=== PATIENT | male | born 1960 ===

== ENCOUNTER 2019-04-01 02:07 | Inpatient (IN) ==
[2019-04-01] MEDS ORDERED: ICU PROTOCOL FOR HYPERGLYCEMIA PRN (05:43)
[2019-04-01] MEDS ORDERED: HydrALAZINE HCL 20 MG/ML VIAL IV STA (06:17)
--- NOTE | 2019-04-01 06:28 | History & Physical Report ---
Date of Service April 01, 2019 Assessment & Plan (1) Hypertensive encephalopathy: Hypertensive encephalopathy/hypertensive urgency- Patient received IV labetalol, IV hydralazine, IV Dilaudid and oral Valium at [facility]'s ED. Transfer report was the patient was to be started on nicardipine drip, however, upon arrival, it is learned the patient was never begun on the drip. Resume his hydralazine 100 mg p.o. 3 times daily. Placed on hydralazine 10 mg IV dose now, and then every 4 hours as needed systolic blood pressure above 160. Order complete echocardiogram. Order initial work-up: CBC with differential, chemistry profile, magnesium level, phosphorus, troponin, EKG, chest x-ray. Consult clothespin drier operator. Present on Admission?: Yes (2) Hypertensive urgency: See above. Present on Admission?: Yes (3) Chronic kidney disease: Creatinine of 1.75 reportedly is near his baseline of 1.5-1.7. Present on Admission?: Yes (4) Cocaine abuse: Reportedly urine drug screen from 2 days ago was positive for cocaine. Repeat was requested prior to transfer, however, may need to be ordered at this facility. Present on Admission?: Yes (5) Seizure disorder: Reports history of seizure disorder, but on no medications at this time. Present on Admission?: Yes (6) Blurred vision, bilateral: Patient reports that his bilateral blurred vision has almost completely normalized, with just some residual blur in his right eye. Present on Admission?: Yes (7) Admitted to intensive care unit: Admitted as above. Present on Admission?: Yes History of Present Illness Chief Complaint: The patient presents as a transfer from [facility]'s Emergency Department to [facility] to further address diagnosis and treatment of hypertensive encephalopathy and urgency. Primary Care Provider: NO PCP The patient is a 58-year-old male with past medical history including hypertension, hypertensive urgency, positive recent UDS for cocaine, chronic kidney disease stage III and acute renal failure who presented to [facility] emergency department on the evening of 03/31/2019 due to confusion, blurred vision and elevated blood pressure. At that time he was given 10mg of IV hydralazine, 20 mg of IV labetalol, 1mg of IV Dilaudid and oral Valium, with best blood pressure obtainable there to 215/135. Allergies Allergy/AdvReac Type Severity Reaction Status Date / Time No Known Allergies Allergy Unverified 04/01/19 06:11 Home Medications Home Medications Medication Instructions Recorded Confirmed Type hydralazine 100 mg PO TID 04/01/19 04/01/19 History Past Med/Surg History Medical History Hypertension Seizure Social History Preferred Language: Guamanian Communication Ability: Effective Intervention Specialist Required: No Beliefs That Will Affect Care: None marital status: Single Current Living Situation: Family Feels Safe at Home: Yes Safety Concerns: Feels Safe At This Time Smoking Status: Current every day smoker Tobacco Type: cigarettes ; Cigarettes Per Day: 20 ; Do You Dip or Chew Tobacco: No ; Second Hand Exposure: No ; Hx Alcohol Use: No Review of Systems Review of Systems: The patient denies chest pain, palpitations, shortness of breath, dyspnea on exertion, cough, lower extremity swelling, sore throat, fevers, chills, sweats, weight change, nausea, vomiting, diarrhea , constipation, abdominal pain, pelvic pain, blood in urine or stool, dysuria, urinary frequency or urgency, loss of consciousness, rash, abnormal bruising or bleeding, imbalance, focal weakness, numbness or tingling in arms or legs, generalized a rthralgias or myalgias, back or neck pain, or night sweats. The review of systems is otherwise negative other than for that already noted above, and at least 10 systems have been reviewed. Physical Exam Physical Exam: The patient is awake, alert and oriented 3, lying in bed and in no acute distress. HEENT--PERRL, EOMI, mucous membranes and oropharynx very dry. Neck--supple. No JVD. No bruits. Thyroid normal, trachea midline, no adenopathy. Heart--normal S1 and S2. No murmurs, rubs or gallops. Lungs--clear bilaterally, no respiratory distress, no accessory muscle use. Abdomen--normal bowel sounds and soft. Nontender. Nondistended, no hernias or masses, no organomegaly. Extremities--no cyanosis or clubbing. No edema. Dermatologic--skin on face mildly erythematous and dry. Neurologic--cranial nerves II through XII grossly intact. Rheumatologic--normal range of motion. Psychiatric--normal affect. Results & Data Vital Signs (Past 12 Hours) Vital Signs Temp Pulse Resp BP Pulse Ox 04/01/19 05:46 97.7 F 57 L 18 208/110 H 96 Code Status & VTE Plan Code Status Full code VTE Prophylaxis Plan VTE Prophylaxis will be ordered: Yes Critical Care Time Critical Care Time: Yes Total Critical Care Time: 45 total critical care time was 45 minutes PG Care Time/CCT Total # of Minutes Spent Total Time Spent with Patient: Total time spent is greater than 50% in coordination of care (as documented) at patient's floor/unit and/or counseling patient: Critical Care Time: Yes Total Critical Care Time: 45
[2019-04-01] MEDS ORDERED: FAMOTIDINE 20 MG in SYRINGE 3 ML IV SCH (06:30)
--- NOTE | 2019-04-01 06:46 | Critical Care Consultation ---
Date of Consultation April 01, 2019 Assessment & Plan (1) Admitted to intensive care unit: Reason Critically Ill: 58-year-old male with hypertensive urgency requiring aggressive antihypertensive medications. NEURO/PSYCH - * CAM ICU: NEGATIVE * History of migraines. * Would avoid narcotics in the patient for potential for abuse given his history of prior narcotic dependence and frequent visits to the emergency department. * CT of head yesterday found to be unremarkable. * Patient had tested positive for cocaine 2 days ago at the emergency department. * Blurry vision and paresthesias: * Reportedly resolved after correction of blood pressure. * Presumed hypertensive related. * Suicidal thoughts: * Suicide precautions in place. * Appreciate psychiatric consultation. CARDIAC/VASCULAR - * Hypertensive emergency: * Initially with blood pressures in the 230s. Did respond to intravenous me dications appropriately. * Noncompliant with home medications. * We will treat with IV hydralazine. * Restart all home antihypertensives. * Completely asymptomatic at this time. * Will check labs for evaluation of end-organ damage. * Consider Cardene if needed. * Avoid beta-blockers with recent positive UDS for cocaine. * Will repeat UDS. * Monitor on telemetry. RESPIRATORY - * No history of pulmonary disease. * Monitor continuous pulse oximetry. * Supplemental O2 as needed. GI/NUTRITION - * Heart healthy diet * Prophylaxis: Famotidine RENAL/LYTES - * Will check labs and chemistry panel. * Replace as needed. * IVF: Hold on IV fluids in the setting of hypertensive emergency. - * No concerns at this time. ENDO - * No history of diabetes or thyroid disease. * BSGs per unit protocol. ISS --> gtt per unit policy. HEME - * Will check H&H. * Transfuse as needed. ID - * No concerns of infectious etiologies at this point. LINES/IV ACCESS - * PIVs x1 DVT PROPHYLAXIS - * Heparin * SCDs Thank you for allowing us to participate in the care of this patient. Please refer to my attending physician's documentation for any further recommendations. (2) Hypertensive urgency: (3) Chronic kidney disease: (4) Blurred vision, bilateral: (5) Suicidal thoughts: Supervising Physician Co-Signing Physician Notes Patient seen and examined. Discussed with KATYA. EMR reviewed. Agree with assessment and plan as noted by the KATYA. 58-year-old male transferred from outside facility for concern for hypertensive urgency. The patient's on multiple medications at home. Unclear if he is been compliant. He presented with some washable neurologic changes and encephalopathy. He was profoundly hypertensive. There was concern the patient would require Cardene. He was transferred here. His blood pressure remained adequately controlled without need for parenteral agents. This morning he complains of a mild headache which he states he has had quite frequently. He did express some potential suicidal ideation and psychiatry consult is currently pending and the patient is on one-to-one with suicide precautions in place. He does have a mild degree of renal insufficiency but previous probably had acute renal failure and his current creatinine is better than previous. The patient appears appropriate to transfer to the floor. We will have the hospitalist to assume care and sign off once he leaves the intensive care unit. Feel free to contact us with additional [facility] critical care issues. History of Present Illness Attending Physician: Segundo Castillo MD History of Present Illness Patient is a 58-year-old male with significant past medical history of hypertension and reported recent past medical history of acute renal failure requiring inpatient hospitalization who was transferred to this facility with concerns for hypertensive emergency. He reports that he has been having increasing migraine headaches requiring frequent trips to the emergency department. He was seen at the [place] emergency department 3 days ago as well as yesterday for migrainous headaches. He was treated and discharged. He reports that yesterday, he developed blurry vision of the bilateral eyes as well as paresthesias to the bilateral hands and feet. On arrival in the emergency department he was found to be extremely hypertensive. He received IV labetalol, hydralazine, Dilaudid, Ativan, and Zofran. This did not provide adequate blood pressure control. Due to space availability, the patient was transferred to this facility for higher level of care. Initially, Cardene drip was ordered, but not instituted as his blood pressure had maintained in the 160s to 170s prior to transfer. Upon evaluation in the ICU, the patient is awake, alert, and oriented. He states that he is having no chest pain. He currently denies any headaches, dizziness, lightheadedness, blurry vision. He denies any paresthesia of the hands. He reports some persistent bilateral foot paresthesias. Patient admits to using methamphetamines earlier in the week related to family issues. Recently, he moved out of his son's house as [facility] was contacted and patient was informed that he could not be in contact with his granddaughter. Since that time, he has moved out and lives with his brother. He reports this is added increasing stress in his life. This, in addition to losing full custody of his 2 younger children 3 years ago, have provided increasing anxiety and stress. He reports increasing sadness and thoughts of suicide. He reports that he would likely overdose if he did attempt suicide. He denies any homicidal ideations. He denies any other illicit drug use. He denies any auditory or visual hallucinations. Allergies Allergy/AdvReac Type Severity Reaction Status Date / Time No Known Allergies Allergy Unverified 04/01/19 06:11 Home Medications Home Medications Medication Instructions Recorded Confirmed Type hydralazine 100 mg PO TID 04/01/19 04/01/19 History Patient History Medical History Hypertension Seizure Social History Preferred Language: Azeri Communication Ability: Effective Radioactive Waste Disposal Dispatcher Required: No Beliefs That Will Affect Care: None Current Living Situation: Family Feels Safe at Home: Yes Safety Concerns: Feels Safe At This Time Smoking Status: Current every day smoker Tobacco Type: cigarettes ; Cigarettes Per Day: 20 ; Do You Dip or Chew Tobacco: No ; Second Hand Exposure: No ; Hx Alcohol Use: No Review of Systems Review of Systems: A complete 10 point review of systems was reviewed with the patient with pertinent positives and negatives as per history of present illness. All else were negative. Physical Exam Physical Exam: VITAL SIGNS - Vital signs and nursing notes were reviewed. GENERAL - 58-year-old male appearing his stated age who is in no acute distress. Communicates well with provider and answers questions appropriately. SKIN - Without rashes. HEAD - NC/AT. EYES - PERRL with EOMI bilaterally. Sclera anicteric. Palpebral conjunctiva pink and moist with no injection noted. EARS - No deformities of external structures noted on gross examination bilaterally. NOSE - Midline and without cyanosis. No epistaxis or purulent drainage noted. Septum midline without deviation or septal hematoma noted. MOUTH/OROPHARYNX - Without perioral cyanosis. Buccal mucosa pink and moist and without leukoplakia. Tongue midline with equal elevation of palate bilaterally. No tonsillar hypertrophy, erythema, or exudates noted. Fair dentition noted. NECK - Neck with FROM. Supple to palpation. No nuchal rigidity. LUNGS - Chest wall symmetric without accessory muscle use, intercostals retractions, or central cyanosis. Normal vesicular breath sounds CTA B/L. No w heezes, rales, or rhonchi appreciated. CARDIAC - RRR with S1/S2. No murmur, rubs, or gallops appreciated. ABDOMEN - Abdominal contour flat without pulsations or visible masses. BS normoactive all four quadrants. No tenderness, palpable masses, hepatosplenomegaly, or ascites noted. EXTREMITIES - No clubbing or peripheral cyanosis. No pretibial edema present. +3/5 radial and dorsalis pedis pulses palpated throughout. +5/5 strength noted in UE/LE bilaterally. NEUROLOGIC - Cranial nerves II through XII grossly intact. Sensory intact to light touch throughout. Patellar reflexes +2/4. PSYCH - A&Ox3 and cooperates fully with examiner. Affect appropriate. Suicidal thoughts recently with increasing stress and depression. Results & Data Vital Signs (Past 12 Hours) Vital Signs Temp Pulse Pulse Resp BP BP Pulse Ox 04/01/19 06:00 56 L 19 216/110 H 100 04/01/19 05:46 36.5 C 57 L 18 208/110 H 96 04/01/19 05:45 57 L 18 220/114 H 96 PG Care Time/CCT Total # of Minutes Spent Total Time Spent with Patient: Total time spent is greater than 50% in coordination of care (as documented) at patient's floor/unit and/or counseling patient:
[2019-04-01 07:10] LABS: Partial Thromboplastin Ratio 0.9; Partial Thromboplastin Time 23.3 Seconds (21.0-31.0); Prothrombin Time 10.2 Seconds (9.0-12.0)
[2019-04-01 07:20] LABS: Alanine Aminotransferase 32 U/L (12-78); Albumin Level 3.4 gm/dl (3.4-5.0); Aspartate Aminotransferase 31 U/L (15-37); BUN Creatinine Ratio 10.4 (10-20); Blood Urea Nitrogen 16 mg/dl (7-18); Calcium 8.6 mg/dl (8.5-10.1); Carbon Dioxide 29 mmol/L (21-32); Chloride 105 mmol/L (98-107); Creatinine Clr Calc Pharmacy 44.9 ml/min; Est GFR (African American) 55.9; Est GFR (Non-African American) 48.2; Glucose 89 mg/dl (70-99); Magnesium 2.3 mg/dl (1.8-2.4); Potassium 4.1 mmol/L (3.5-5.1); Sodium 139 mmol/L (136-145)
[2019-04-01 07:22] LABS: Albumin Globulin Ratio 0.9 (0.9-2); Alkaline Phosphatase 90 U/L (45-117); Bilirubin,Total 0.7 mg/dl (0.2-1); Phosphorus 3.4 mg/dl (2.5-4.9); Total Protein 7.4 gm/dl (6.4-8.2); Troponin I < 0.015 ng/ml (0-0.045)
[2019-04-01 07:50] LABS: Basophils # (auto) 0.04 K/uL (0-0.2); Basophils % (auto) 0.7 %; Eosinophils # (auto) 0.17 K/uL (0-0.5); Eosinophils % (auto) 2.9 %; Hemoglobin 13.3 g/dL (14.0-18.0); Immature Granulocytes # (auto) 0.01 K/uL (0.00-0.02); Immature Granulocytes % (auto) 0.2 %; Lymphocytes # (auto) 2.25 K/uL (1.2-3.4); Lymphocytes % (auto) 38.8 %; Mean Corpuscular Volume 89.9 fL (80-100); Mean Platelet Volume 9.3 fL (7.4-10.4); Monocytes # (auto) 0.65 K/uL (0.11-0.59); Monocytes % (auto) 11.2 %; Neutrophils # (auto) 2.68 K/uL (1.4-6.5); Neutrophils % (auto) 46.2 %; Platelet Count 249 K/uL (130-400); RDW Coefficient of Variation 13.5 % (11.5-14.5); RDW Standard Deviation 44.3 fL (36.4-46.3); Red Blood Count 4.34 M/uL (4.7-6.1)
[2019-04-01 08:02] LABS: Mean Corpuscular Hgb Conc 34.1 g/dL (32-36)
--- NOTE | 2019-04-01 08:09 | XRay Report ---
SINGLE VIEW CHEST CLINICAL HISTORY: Hypertensive encephalopathy. FINDINGS: An AP, portable, upright chest radiograph is obtained. No prior studies are available for c omparison at the time of dictation. The examination is degraded by portable technique and patient rot ation. The cardiomediastinal silhouette is unremarkable. The lungs and pleural spaces are clear. No pneumothorax is seen. There is a healed left posterior rib fracture. Fusion hardware is noted in the lower cervical spine. IMPRESSION: No active disease in the chest. Electronically signed by: Moshe Lester M.D. 04/01/2019 8:07 AM
[2019-04-01] MEDS: HydrALAZINE TAB 50 MG TAB PO SCH ×3 (08:18→20:46)
[2019-04-01] MEDS: CARVEDILOL 12.5 MG TAB PO SCH ×2 (08:18→20:46)
[2019-04-01] MEDS: AMLODIPINE BESYLATE 5 MG TAB PO SCH (08:18)
[2019-04-01] MEDS: SENNA 8.6 MG TAB PO SCH (08:19)
[2019-04-01] MEDS: ASPIRIN 81 MG ECTAB PO SCH (08:19)
[2019-04-01] MEDS ORDERED: ACETAMINOPHEN 325 MG TAB PO PRN (08:21)
[2019-04-01 12:40] LABS: Appearance Urine Clear (Clear); Bacteria Urine Automated Negative (Negative); Bilirubin Urine Negative (Negative); Blood Urine Negative (Negative); Color Urine Yellow; Epithelial Cell Urine Auto 0-5 /lpf (0-5); Glucose Urine UA Negative (Negative); Ketones Urine Negative (Negative); Leukocyte Esterase Urine Negative (Negative); Nitrite Urine Negative (Negative); Protein Urine 1+ (Negative); RBC Urine Automated 0-4 /hpf (0-4); Specific Gravity Urine 1.011 (1.000-1.030); Urobilinogen Urine Negative (Negative); WBC Urine Automated 0 /hpf (0-5)
[2019-04-01 12:56] LABS: Amphetamines+Metham, Urine Neg (Neg); Barbiturates, Urine Neg (Neg); Benzodiazepine, Urine Neg (Neg); Cocaine, Urine Neg (Neg); MDMA (Ecstacy), Urine Neg (Neg); Methadone, Urine Neg (Neg); Opiate, Urine Pos (Neg); Phencyclidine, Urine Neg (Neg)
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
--- NOTE | 2019-04-01 14:29 | Communication Note ---
Date of Service: April 01, 2019 Case discussed with binding printer. Seen in follow-up from early a.m. admission. Patient sleeping comfortably, RED MUD THICKENER OPERATOR notes that this is the first the patient claims to have slept in days. No new issues. Blood pressure improving. Will allow patient to sleep. Later psychiatry input reviewed and appreciated. Continue current care
[2019-04-01] MEDS ORDERED: OLANZapine 5 MG TABLET PO SCH (21:00)
[2019-04-01] MEDS ORDERED: ATORVASTATIN 40 MG TAB PO SCH (21:00)
[2019-04-02 07:52] LABS: Basophils # (auto) 0.03 K/uL (0-0.2); Basophils % (auto) 0.5 %; Eosinophils # (auto) 0.17 K/uL (0-0.5); Eosinophils % (auto) 3.1 %; Hematocrit (blood only) 35.6 % (42-52); Hemoglobin 12.2 g/dL (14.0-18.0); Immature Granulocytes # (auto) 0.01 K/uL (0.00-0.02); Immature Granulocytes % (auto) 0.2 %; Lymphocytes % (auto) 35.9 %; Mean Corpuscular Hgb Conc 34.3 g/dL (32-36); Mean Corpuscular Volume 89.9 fL (80-100); Mean Platelet Volume 8.9 fL (7.4-10.4); Monocytes # (auto) 0.67 K/uL (0.11-0.59); Neutrophils # (auto) 2.69 K/uL (1.4-6.5); Neutrophils % (auto) 48.3 %; Platelet Count 254 K/uL (130-400); RDW Coefficient of Variation 13.4 % (11.5-14.5); RDW Standard Deviation 44.1 fL (36.4-46.3); Red Blood Count 3.96 M/uL (4.7-6.1); White Blood Count 5.57 K/uL (4.8-10.8)
[2019-04-02] MEDS: SENNA 8.6 MG TAB PO SCH (08:09)
[2019-04-02] MEDS: ASPIRIN 81 MG ECTAB PO SCH (08:10)
[2019-04-02] MEDS: AMLODIPINE BESYLATE 5 MG TAB PO SCH (08:10)
[2019-04-02] MEDS: HydrALAZINE TAB 50 MG TAB PO SCH ×3 (08:11→20:32)
[2019-04-02] MEDS: CARVEDILOL 12.5 MG TAB PO SCH ×2 (08:11→20:32)
[2019-04-02 08:18] LABS: BUN Creatinine Ratio 12.8 (10-20); Calcium 8.6 mg/dl (8.5-10.1); Creatinine Clr Calc Pharmacy 39.6 ml/min; Est GFR (Non-African American) 41.4
--- NOTE | 2019-04-02 12:42 | Psychiatric Progress Note ---
Date of Service April 02, 2019 Impression / Recommendations Impression 58-year-old male with a history of substance abuse and recent incarceration for selling methamphetamine who lives with his brother in [place], has multiple medical problems and is not compliant with his medication, and is admitted with hypertensive emergency. He reports low mood in the context of multiple psychosocial stressors, with passive suicidal ideation. He is not forthcoming regarding his substance abuse, and the differential includes substance-induced mood disorder versus adjustment disorder or major depression. His brother indicates that the patient can return to live with him, and denies safety concerns with discharge. He would benefit from outpatient substance abuse treatment, which could be arranged tomorrow if he is still here. He has not been willing for inpatient mental health treatment, and does not meet criteria for involuntary commitment given that his suicidal thoughts or passive and he has had no active furtherance. (1) Suicidal thoughts: 04/01 -briefly discussed the differential diagnosis and treatment options, and patient is unsure whether he is interested in inpatient treatment. -Suicidal ideation is passive without plan or intent, so would be appropriate for outpatient treatment referrals. Recommend dual diagnosis treatment given substance abuse. -We will continue to follow while he is in the hospital. 04/02 -patient is reporting improved mood and denying plan or intent to harm himself. He has not been willing for voluntary inpatient treatment, and does not meet criteria for involuntary treatment. His brother was contacted for collateral and confirmed that the patient can live with him and that he feels safe bringing him home. (2) Substance abuse: Per records, patient has used both meth and cocaine recently, but he is not forthcoming with details of his substance use. Recommend abstinence from abusable substances given the risk of worsening mood, medical sequelae, legal problems, etc. He is not willing for inpatient substance abuse treatment, but is willing to consider outpatient treatment in the [place] area. Present on Admission?: Yes Risk Factors Assessment Male: Yes : Yes Health Problems: Yes Mental Health Diagnoses: Yes Substance Use Disorders: Yes Previous Attempt: No Family History of Suicide: No Previous Psychiatric Hospitalization: No Protective Factors Assessment Supportive Family: Yes Absence of Any Risk Factors Above: Yes (Patient denies any plan or intent to harm himself at this time, has stable housing, and support from his brother.) Interval History Chief Complaint "Good". Review of Systems Notes Hypersomnolence. No psychosis or anxiety. Subjective Subjective Patient was seen & assessed and interval progress reviewed with the liaison nurse and hospitalist. His blood pressure has improved, and he has been sleeping a lot, reporting that he had not slept in several days prior to admission. His brother was contacted by staff at the patient's permission, and reported the patient is able to live with him after discharge, he feels safe taking him home and does not believe he is a danger to himself. He stated that he or someone else would be with the patient at all times. The patient himself continues to endorse passive suicidal ideation, without a plan or intent. He was unwilling to consider voluntary inpatient treatment, but indicated willingness for referrals for outpatient substance abuse treatment. He would not sign a release for staff to talk to his patrol officer. He plans to return to his brother's home, and is willing to seek outpatient treatment in the [facility]. He reports good appetite and sleep. Physical Exam Psychiatric Somnolent, but arousable to light touch. Thin, wearing a hospital gown. Appears older than stated age. Eye Contact: good eye contact Motor Behavior: no abnormal motor movements Speech: normal rate/rhythm/volume of speech Affect restricted to sleepy "Good.". Thought Process: goal directed thought process Thought Content: reality based without delusions Suicidal Thoughts: denies suicidal thoughts Hallucinations: no auditory hallucinations Cognition: language grossly intact Insight: + fair insight Judgement: + fair judgement Vital Signs (Past 24 Hours) Last Vital Signs Temp 36.6 C 04/02/19 11:37 Pulse 60 04/02/19 11:37 Resp 16 04/02/19 11:37 BP 148/77 H 04/02/19 11:37 Pulse Ox 97 04/02/19 11:37 Results & Data Laboratory Results Laboratory Results - last 24 hr 04/01/19 04/01/19 04/01/19 12:14 12:14 12:14 WBC RBC Hgb Hct MCV MCH MCHC RDW Std Deviation RDW Coeff of Isaiah Plt Count MPV Immature Gran % (Auto) Neut % (Auto) Lymph % (Auto) [place] % (Auto) Eos % (Auto) Baso % (Auto) Immature Gran # (Auto) Neut # (Auto) Lymph # (Auto) [place] # (Auto) Eos # (Auto) Baso # (Auto) Sodium Potassium Chloride Carbon Dioxide Anion Gap BUN Creatinine Est Cr Clr Drug Dosing Est GFR ( Amer) Est GFR (Non-Af Amer) BUN/Creatinine Ratio Glucose Calcium Urine Color Yellow Urine Appearance Clear Urine pH 6.0 Ur Specific House 1.011 Urine Protein 1+ H Urine Glucose (UA) Negative Urine Ketones Negative Urine Blood Negative Urine Nitrite Negative Urine Bilirubin Negative Urine Urobilinogen Negative Ur Leukocyte Esterase Negative Urine WBC (Auto) 0 Urine RBC (Auto) 0-4 U Hyaline Cast (Auto) 1-5 U Epithel Cells (Auto) 0-5 Urine Bacteria (Auto) Negative Urine Opiates Screen Pos H U Codeine Confrm GC/MS Pending Ur Morphine (GC/MS) Pending Ur Hydrocodone (GC/MS) Pending Ur Norhydrocodone Pending Ur Noroxycodone Pending Urine Oxycodone (GC/MS) Pending U Oxymorphone GC/MS Pending Ur Methadone, Qual Neg Ur Hydromorphone (GC/MS) Pending Urine Barbiturates Neg Ur Phencyclidine (PCP) Neg U Amphetamin/Meth Scrn Neg MDMA (Ecstasy) Screen Neg U Benzodiazepines Scrn Neg Ur Cocaine Metabolite Neg U Marijuana (THC) Screen Neg 04/02/19 04/02/19 07:31 07:31 WBC 5.57 RBC 3.96 L Hgb 12.2 L Hct 35.6 L MCV 89.9 MCH 30.8 MCHC 34.3 RDW Std Deviation 44.1 RDW Coeff of Isaiah 13.4 Plt Count 254 MPV 8.9 Immature Gran % (Auto) 0.2 Neut % (Auto) 48.3 Lymph % (Auto) 35.9 [place] % (Auto) 12.0 Eos % (Auto) 3.1 Baso % (Auto) 0.5 Immature Gran # (Auto) 0.01 Neut # (Auto) 2.69 Lymph # (Auto) 2.00 [place] # (Auto) 0.67 H Eos # (Auto) 0.17 Baso # (Auto) 0.03 Sodium 141 Potassium 4.0 Chloride 108 H Carbon Dioxide 28 Anion Gap 5.0 BUN 23 H Creatinine 1.77 H Est Cr Clr Drug Dosing 39.6 Est GFR ( Amer) 48.0 Est GFR (Non-Af Amer) 41.4 BUN/Creatinine Ratio 12.8 Glucose 97 Calcium 8.6 Urine Color Urine Appearance Urine pH Ur Specific House Urine Protein Urine Glucose (UA) Urine Ketones Urine Blood Urine Nitrite Urine Bilirubin Urine Urobilinogen Ur Leukocyte Esterase Urine WBC (Auto) Urine RBC (Auto) U Hyaline Cast (Auto) U Epithel Cells (Auto) Urine Bacteria (Auto) Urine Opiates Screen U Codeine Confrm GC/MS Ur Morphine (GC/MS) Ur Hydrocodone (GC/MS) Ur Norhydrocodone Ur Noroxycodone Urine Oxycodone (GC/MS) U Oxymorphone GC/MS Ur Methadone, Qual Ur Hydromorphone (GC/MS) Urine Barbiturates Ur Phencyclidine (PCP) U Amphetamin/Meth Scrn MDMA (Ecstasy) Screen U Benzodiazepines Scrn Ur Cocaine Metabolite U Marijuana (THC) Screen Current Inpatient Medications Current Inpatient Medications: Current Inpatient Medications Acetaminophen (Tylenol) 325 mg PO Q4H PRN PRN Reason: Pain Stop: 05/01/19 08:20 Amlodipine Besylate (Norvasc) 10 mg PO QAM [facility] Stop: 05/01/19 08:59 Last Admin: 04/02/19 08:10 Dose: 10 mg Documented by: Aspirin (Ecotrin Ectab) 81 mg PO QAM [facility] Stop: 05/01/19 08:59 Last Admin: 04/02/19 08:10 Dose: 81 mg Documented by: Atorvastatin Calcium (Lipitor) 80 mg PO [facility] Stop: 05/01/19 20:59 Last Admin: 04/01/19 20:47 Dose: 80 mg Documented by: Carvedilol (Coreg) 12.5 mg PO BID [facility] Stop: 05/01/19 08:59 Last Admin: 04/02/19 08:11 Dose: 12.5 mg Documented by: Hydralazine HCl (Apresoline) 100 mg PO TID [facility] Stop: 05/01/19 08:59 Last Admin: 04/02/19 08:11 Dose: 100 mg Documented by: Miscellaneous (Icu Protocol For Hyperglycemia) 1 ea N/A PRN PRN; Protocol PRN Reason: Hyperglycemia Protocol Stop: 04/03/19 05:42 Olanzapine (Zyprexa) 5 mg PO [facility] Stop: 05/01/19 20:59 Last Admin: 04/01/19 20:47 Dose: 5 mg Documented by: Sennosides (Senokot) 17.2 mg PO QAM [facility] Stop: 05/01/19 08:59 Last Admin: 04/02/19 08:09 Dose: 17.2 mg Documented by: CPT Code CPT Code 00754
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
[2019-04-03 07:17] VITALS: BP 152/83; TEMP 97.7; O2SAT 96
[2019-04-03] MEDS: ASPIRIN 81 MG ECTAB PO SCH (08:29)
[2019-04-03] MEDS: AMLODIPINE BESYLATE 5 MG TAB PO SCH (08:29)
[2019-04-03] MEDS: HydrALAZINE TAB 50 MG TAB PO SCH ×2 (08:29→13:39)
[2019-04-03] MEDS: CARVEDILOL 12.5 MG TAB PO SCH (08:29)
[2019-04-03] MEDS: SENNA 8.6 MG TAB PO SCH (08:29)
--- NOTE | 2019-04-03 10:41 | Family Medicine Progress Note ---
Date of Service April 03, 2019 Assessment & Plan (1) Hypertensive encephalopathy: Quickly stabilized. Appears to have been related to stimulant (probably methamphetamine) use. This was also likely superimposed on poor baseline control given his numbers after several meds were added. Stable for discharge to home in this regard. Escalated blood pressure management should continue, with close outpatient follow-up (2) Hypertensive urgency: See above. (3) Chronic kidney disease: reportedly is near his baseline of 1.5-1.7. Recommend outpatient basic metabolic panel in the next week, then periodically thereafter (4) Cocaine abuse: Reportedly urine drug screen from 2 days prior to admission was positive for cocaine, reportedly he currently was using meth. Advised that either/both stimulant drugs generally lead to disastrous outcomes, advised to not do meth (5) Seizure disorder: Reports history of seizure disorder, but on no medications at this time. Outpatient follow-up (6) Blurred vision, bilateral: Seems to have resolved (7) Admitted to intensive care unit: Initially was in ICU due to the hypertensive crisis, now stable for home. (8) Suicidal thoughts: At times he did express passive suicidality, never active suicidality and never a plan. His stimulant use was not a suicide attempt. Psychiatry and psych liaison nurse saw patient on several occasions throughout his stay, and it was clear that he was not at imminent risk to himself or others. All were in agreement (including the patient) that he would be safe as an outpatient. Per Psych, patient is set-up with [facility], in [place] who will help arrange outpatient psychiatric services. Services limited due to patient insurance. Patient has court hearing on April 21; will be transported home via bus later this afternoon. Supervising Physician Co-Signing Physician Notes ATTENDING NOTE I saw the patient with the resident physician and confirmed diaz portion of the history and physical exam. Agree with the impression and plan as noted above. I reviewed the patient's medications with him -he understands need for outp atient follow-up with his primary care physician to recheck his blood pressure and adjust medications if needed. Unfortunately the patient was not able to get a ride home yesterday as planned as the brother with whom he is going to stay could not obtain a vehicle to pick the patient up. Case management has arranged for transportation via bus, the patient is agreeable to this arrangement. Psychiatry has arranged outpatient services in [place]. Subjective Pt is doing well this morning, has had no continued blurry vision, or maintained symptoms. Awaiting transportation home to [place], as his transportation yesterday fell through. Working with case management for transportation, this morning. Potential for arranging bus ticket back home; he has hearing on the . Review of Systems Constitutional: no body aches, no fatigue and no weakness Eyes: no diplopia, no eye pain and no worsening vision Ear, Nose, Mouth, Throat: no tinnitus, no dizziness and no epistaxis Respiratory: no cough and no dyspnea Cardiovascular: no chest pain, no palpitations and no syncope Gastrointestinal: no abdominal pain, no heartburn, no nausea and no vomiting Genitourinary: no dysuria and no hematuria Musculoskeletal: no joint pain and no muscle weakness Integumentary: no rash and no lesions Neurologic: no falls and no loss of sensation Psychiatric: no suicidal ideation and no homicidal ideation Physical Exam Constitutional: + thin, + frail appearing and + disheveled Eyes: PERRL Neck: no neck crepitus, no midline deformity and neck nontender Respiratory: normal respiratory effort, lungs clear to auscultation no respiratory distress Cardiovascular: Rate/Rhythm: regular rate and regular rhythm Heart Sounds: normal S1 and normal S2; no gallop, no murmur and no cardiac rub Extremities: no pedal edema Skin: no rashes, warm and dry normal turgor Psychiatric: Orientation: + not alert and + not oriented x 3 Apperance: + disheveled Eye Contact: good eye contact Results & Data Vital Signs (Past 12 Hours) Vital Signs Temp Pulse Resp BP Pulse Ox 04/03/19 07:16 36.5 C 54 L 20 152/83 H 96 04/02/19 22:47 36.9 C 85 21 115/61 95 Medications Administered Current Inpatient Medications Amlodipine Besylate (Norvasc) 10 mg PO QAM [facility] Stop: 05/01/19 08:59 Last Admin: 04/03/19 08:29 Dose: 10 mg Documented by: Aspirin (Ecotrin Ectab) 81 mg PO QAM [facility] Stop: 05/01/19 08:59 Last Admin: 04/03/19 08:29 Dose: 81 mg Documented by: Carvedilol (Coreg) 12.5 mg PO BID [facility] Stop: 05/01/19 08:59 Last Admin: 04/03/19 08:29 Dose: 12.5 mg Documented by: Hydralazine HCl (Apresoline) 100 mg PO TID [facility] Stop: 05/01/19 08:59 Last Admin: 04/03/19 08:29 Dose: 100 mg Documented by: Sennosides (Senokot) 17.2 mg PO QAM [facility] Stop: 05/01/19 08:59 Last Admin: 04/03/19 08:29 Dose: 17.2 mg Documented by: PG Care Time/CCT Total # of Minutes Spent Total Time Spent with Patient: Total time spent is greater than 50% in coordination of care (as documented) at patient's floor/unit and/or counseling patient: Resident Activity Tracking Resident Involvement: Resident Care Provided Care Provided: Adult Hospital Medicine
[2019-04-03 13:32] VITALS: PULSE 72
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
[2019-04-05 11:08] LABS: Codeine Urine NEGATIVE NG/ML (CUTOFF=50); Hydrocodone Urine NEGATIVE NG/ML (CUTOFF=50); Hydromor Urine 267 NG/ML (CUTOFF=50); Morphine Urine NEGATIVE NG/ML (CUTOFF=50); Norhydrocodone Conf Ur NEGATIVE NG/ML (CUTOFF=50); Noroxycodone Urine NEGATIVE NG/ML (CUTOFF=50); Oxycodone Urine NEGATIVE NG/ML (CUTOFF=50); Oxymorph Urine NEGATIVE NG/ML (CUTOFF=50)
== END 2019-04-03 15:50 | disposition home or self-care (01) | DRG 918 ==
LOC: SUATTDRO 05:41 → 1E 05:41 → 2S 15:02 → 2N 04-02 18:15